=== PATIENT | male | born 1975 | race Caucasian/White ===

== ENCOUNTER 2017-03-07 15:06 | Emergency (ER) | payer BC ==
[2017-03-07 15:48] LABS: BASOPHIL# 0.2 X 10^3uL (0.0-0.1); BASOPHILS 1.1 % (0.0-2.0); EOSINOPHILS 2.7 % (0.0-6.0); EOSINOPHILS# 0.4 X 10^3uL (0.0-0.4); HEMATOCRIT 53.6 % (42.0-54.0); HEMOGLOBIN 18.4 g/dL (14.0-18.0); LYMPHOCYTES# 1.9 X 10^3uL (0.8-3.8); MEAN CELL VOLUME 88.4 fL (80.0-100.0); MEAN CORPUS. HGB CONCENTRATION 34.4 g/dL (32.0-36.0); MEAN CORPUSCULAR HEMOGLOBIN 30.4 pg (29.0-35.0); MEAN PLATELET VOLUME 8.8 fL (7.4-10.4); MONOCYTES 4.4 % (2.0-10.0); MONOCYTES# 0.6 X 10^3uL (0.2-1.0); NEUTROPHILS 78.8 % (54.0-75.0); NEUTROPHILS# 11.4 X 10^3uL (2.6-6.7); PLATELET COUNT 234 X 10^3uL (130-440); RED BLOOD COUNT 6.06 X 10^6uL (4.20-6.10); RED CELL DISTRIBUTION WIDTH 14.3 % (11.5-14.5); WHITE BLOOD COUNT 14.5 X 10^3uL (3.9-10.7)
[2017-03-07 15:55] LABS: BLOOD UREA NITROGEN 31 mg/dL (9-20); CALCIUM 9.9 mg/dL (8.4-10.2); CHLORIDE 98 mmol/L (98-107); EST GLOMERULAR FILTRATION RATE > 60 mL/min; GLUCOSE 160 mg/dL (70-100); MAGNESIUM 1.8 mg/dL (1.6-2.3); POTASSIUM 3.6 mmol/L (3.5-5.1); SODIUM 143 mmol/L (137-145)
--- NOTE | 2017-03-07 16:07 | RADIOLOGY REPORT ---
HISTORY: Cough. COMPARISON: None. FINDINGS: 1 view of the chest obtained. Image quality is degraded by motion artifact. There is suboptimal technique. The heart is enlarged. Mediastinum is not widened for technique. The trachea is midline. Pulmonary va scularity is plethoric. Lungs are hypoventilated with bibasilar volume loss. There is linear opacification both bases suggest amber of atelectasis or scarring. No confluent infiltrate. No pneumothorax or pleural effusion. There a re ovoid densities project over the right hilum which raise a question of right hilar adenopathy. IMPRESSION: 1. Suboptimal technique. 2. Multiple rounded and ovoid densities project over the right hilum suspicious for hilar adenopathy, alternatively these could represent pulmonary vessels on end, but are asymmetric compared to the lef t.. 3. Pulmonary vascular congestion. 4. Lungs are hypoventilated with bibasilar volume loss and linear atelectasis. 5. No pneumothorax or pleural effusion. Recommendation: If the patient's condition permits recommend PA and lateral chest film or CT of the c hest with contrast. Final Electronic Signature: This report was electronically signed by Mohsen Espinoza MD on 03/07/2017 4:0 5 PM. [facility] /
[2017-03-07] MEDS ORDERED: FUROSEMIDE 40 MG/4 ML VIAL ONE (16:38)
--- NOTE | 2017-03-07 16:49 | ER PHYSICIAN DOCUMENTATION ---
Physician Documentation [facility] Name:Iván Paiz Age:41 yrs Sex:Male :1975 Arrival Date:03/07/2017 Time:15:06 BedTrauma-C Private MD: Favian Blanchard Disposition: 03/07 16:21 Critical Care: not applicable. Chart complete. tl1 Disposition: 03/07/17 15:58 Transfer ordered to [facility]. Diagnosis is Acute Pulmonary Edema. - Reason for transfer: Higher level of care. - Accepting physician is Jeremy Collins. - Condition is Serious. - Problem is new. - Symptoms have improved. COBRA Form completed? Yes Transfer - Mode of Transportation Ambulance HPI: 15:23 This 41 yrs old Male presents to ER via Private Vehicle with complaints of tl1 Shortness Of Breath, Chest Tightness. 16:11 He arrived here 2 days ago (drove) from [place] and was immediately dyspneic. This is tl1 much worse today with a diffuse chest pressure. Denies F/C/S. No cough. Bilateral LE edema is worse than usual. Denies prior h/o CAD, or CHF. No prior h/o DVT/PE. No hemoptysis or pleuritic chest pain. Historical: - Allergies: No known drug Allergies; - Home Meds: 1. Atenolol Oral 2. Lotrel Oral 3. HCTZ 4. aspirin 81 mg oral tab 1 tab once daily - PMHx: Hypertension; OBESE; - PSHx: None; - Tetanus: < 10 years. - Ebola Screening: : Patient denies travel to an Ebola-affected area in the 21 days before illness onset. No symptoms or risks identified at this time. . - Immunization history: Pneumococcal vaccine status is unknown, Flu Vaccine >1 year Flu Vaccine >1 year. - Social history: Smoking status: Patient states was never smoker of tobacco. ROS: 16:14 Cardiovascular: Positive for edema, orthopnea, paroxysmal nocturnal dyspnea, Negative tl1 for chest pain, palpitations. 16:14 Respiratory: Positive for dyspnea on exertion, orthopnea, shortness of breath, Negative for cough, hemoptysis, sputum production, wheezing. 16:14 Abdomen/GI: Negative for abdominal pain, nausea, vomiting, diarrhea. 16:14 All other systems are negative. Exam: 16:15 Constitutional: The patient appears alert, awake, well developed, well hydrated, well tl1 groomed, well nourished, anxious, obese, in obvious distress, moderately distressed, restless, uncomfortable. 16:15 Head/face: Exam is negative for acute changes. 16:15 Neck: ROM/movement: is normal, is supple. 16:15 Cardiovascular: Rate: normal, Rhythm: regular, Heart sounds: normal, Edema: 4+ edema to level of left lower thigh and right lower thigh. 16:15 Respiratory: moderate respiratory distress is noted, Respirations: labored breathing, that is mild, Breath sounds: decreased breath sounds, that are moderate, are heard in the left posterior upper lobe, right posterior upper lobe, left posterior lower lobe, right posterior middle lobe and right posterior lower lobe. 16:15 Abdomen/GI: Inspection: abdomen appears normal, Bowel sounds: diminished, Palpation: abdomen is soft and non-tender. 16:15 Musculoskeletal/extremity: Exam is negative for acute changes. 16:15 Skin: Exam negative for acute changes. 16:15 Neuro: Exam negative for acute changes. Vital Signs: 15:11 BP 120 / 97; Pulse 104; Resp 24; Temp 98; Pulse Ox 50% on R/A; Weight 199.58 kg; Height lc 6 ft. (182.88 cm); Pain 2/10; 15:15 Resp 22; Pulse Ox 99% on 15% Non-rebreather mask; lc 15:51 BP 161 / 83; Pulse 38; Resp 18; Pulse Ox 95% on 10% Non-rebreather mask; Pain 0/10; lc 16:05 BP 153 / 88; Pulse 87; Resp 22; Pulse Ox 96% on 12% Non-rebreather mask; Pain 0/10; lc 16:20 BP 159 / 92; Pulse 76; Resp 20; Pulse Ox 95% on 10% Non-rebreather mask; Pain 0/10; lc 16:40 Pulse Ox 95% on 10% Non-rebreather mask; Pain 0/10; lc 15:11 Body Mass Index 59.67 (199.58 kg, 182.88 cm) MDM: 15:23 Patient medically screened. tl1 15:36 ECG:. tl1 15:55 EKG attached sj 16:00 ED course: Robeline much better after supplemental O2. Discussed with Dr Bagley who tl1 accepted the patient in transfer for treatment of HAPE.. 16:19 Differential diagnosis: Anemia CHF exacerbation, Myocardial Infarction pulmonary edema, tl1 Pulmonary Embolism HAPE. Antibiotic administration: Not indicated. The patient's pulmonary embolism risk score was calculated as follows: No Risks (0 Pts). Data reviewed: vital signs, nurses notes, diagnostic data from outside facility, lab test result(s), EKG, radiologic studies, and as a result, I will *Transfer Patient. 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 Test interpretation: by ED physician or midlevel provider: plain radiologic studies, ECG. Counseling: I had a detailed discussion with the patient and/or guardian regarding: the historical points, exam findings, and any diagnostic results supporting the discharge/admit diagnosis, lab results, radiology results, the need to transfer to another facility. Response to treatment: the patient's symptoms have markedly improved after treatment, and as a result, I will admit patient. 03/07 15:49 Order name: CBC AUTO DIF, MDIF/RMOR IF IND; Complete Time: 16:11 EDFL 03/07 16:08 Order name: DDIMER; Complete Time: 16:11 EDFL 03/07 16:09 Interpretation: Normal: DDIMER 235. [facility] 03/07 16:08 Order name: BASIC METABOLIC PANEL; Complete Time: 16:11 EDMS 03/07 16:09 Interpretation: SODIUM 143; POTASSIUM 3.6; CHLORIDE 98; CARBON DIOXIDE 34; GLUCOSE 160; tl1 BLOOD UREA NITROGEN 31; CREATININE 1.2; EST GLOMERULAR FILTRATION RATE > 60; CALCIUM 9.9. 03/07 16:08 Order name: MAGNESIUM; Complete Time: 16:11 EDMS 03/07 16:09 Interpretation: Normal: MAGNESIUM 1.8. [facility] 03/07 16:08 Order name: BNP,NT-PRO; Complete Time: 16:11 EDFL 03/07 16:09 Interpretation: Abnormal: BNP,NT-PRO 1000. [facility] 03/07 16:08 Order name: TROPONIN I; Complete Time: 16:11 EDMS 03/07 16:09 Interpretation: TROPONIN I 0.020; slight elevation (ULN=0.034). [facility] 03/07 16:09 Order name: CHEST; SINGLE VIEW [id number]; Complete Time: 16:11 EDFL 03/07 16:11 Interpretation: See radiologist report. Pulmonary congestion with low lung volumes, and tl1 probable right hilar lymphadenopathy. 03/07 15:35 Order name: EKG - 12 Lead; Complete Time: 15:49 tl1 03/07 15:49 Order name: Oxygen; Complete Time: 15:50 03/07 15:49 Order name: Oxygen Sats; Complete Time: 15:50 03/07 15:49 Order name: Cardiac Monitoring - Continuous; Complete Time: 16:07 EC:12 Rate is 89 beats/min. Rhythm is regular, Normal Sinus Rhythm. QRS Oral is Normal. IN tl1 interval is normal at 183 msec. QRS interval is normal at 101 msec. QT interval is normal at 449 msec. Q waves are Present in lead aVF. T waves are Normal. No ST changes noted. 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 Interpreted by me. Reviewed by me. Dispensed Medications: 16:25 Drug: Lasix 40 mg; Route: IVP; Infused Over: 5 mins; Site: left forearm; 16:40 Follow up: Response: Medication administered at discharge. Point of Care Testing: Urine Dip: 16:25 pH: 6.0; ; Specific [place]: 1.025; Ketones: Negative; Glucose: Negative; Protein: arc Positive (+++); Leukocytes: Negative; Nitrite: Negative ; Blood: Large (+++); Bilirubin: Negative ; Urobilinogen: Normal Signatures: Nathalie Pearson, ANNA CASTILLO Favian Washburn MD MD tl1 Chantelle Perez
--- NOTE | 2017-03-07 16:49 | ER NURSING DOCUMENTATION ---
Nurse's Notes [facility] Name:Iván Paiz Age:41 yrs Sex:Male :1975 Arrival Date:03/07/2017 Time:15:06 BedTrauma-C Private MD: Diagnosis:Acute Pulmonary Edema Presentation: 03/07 15:16 Acuity: YAYA 2 lp 15:18 Presenting complaint: Patient states: ARRIVED 3 DAYS AGO. SINCE C/O SOB WITH ACTIVITY. lc TODAY 1 HR AGO STARTED HAVING INTERMITTENT CHEST PRESSURE, NO N/V. Transition of care: patient was not received from another setting of care. Notified ED Physician of patient's arrival and CC Dr. Washburn notified. 15:18 Method Of Arrival: Private Vehicle lc Triage Assessment: 15:22 General: Appears distressed, uncomfortable, Behavior is anxious, cooperative, restless. lc 15:40 Pain: Complains of pain in xyphoid area and mid-sternal area Pain does not radiate. lc Pain At worst was 2 out of 10 on a pain scale. Quality of pain is described as burning, dull, Pain began 1 hour ago. Neuro: Level of Consciousness is awake, alert, Oriented to person, place, time, event. Cardiovascular: Capillary refill < 3 seconds Rhythm is sinus rhythm. Respiratory: Airway is patent Respiratory effort is labored, Respiratory pattern is tachypnea Breath sounds with crackles bilaterally. Breath sounds are diminished Reports shortness of breath air hunger since 3 DAYS Onset: The symptoms/episode began/occurred gradually, the patient has severe shortness of breath. GI: Abdomen is OBESE. Derm: Skin is pale. Historical: - Allergies: No known drug Allergies; - Home Meds: 1. Atenolol Oral 2. Lotrel Oral 3. HCTZ 4. aspirin 81 mg oral tab 1 tab once daily - PMHx: Hypertension; OBESE; - PSHx: None; - Tetanus: < 10 years. - Ebola Screening: : Patient denies travel to an Ebola-affected area in the 21 days before illness onset. No symptoms or risks identified at this time. . - Immunization history: Pneumococcal vaccine status is unknown, Flu Vaccine >1 year Flu Vaccine >1 year. - Social history: Smoking status: Patient states was never smoker of tobacco. Screenin:45 Infectious Disease Risk None. Abuse screen: Denies threats or abuse. Denies injuries lc from another. Nutritional screening: No deficits noted. Assessment: 15:45 See Triage Assessment done by same RN. lc 15:52 Reassessment: Patient states feeling better. Patient states symptoms have improved. Patient appears in no apparent distress at this time. FEELS MUCH BETTER AFTER 02, CHEST PRESSURE GONE. TRANSFER ARRANGED. FATHER AT BEDSIDE. MONITOR IN NSR.. 16:08 Reassessment: Patient denies pain at this time. Patient appears in no apparent distress at this time. READY FOR TRANSFER. MAP TO FAMILY.. 16:39 Reassessment: FINALLY RECEIVED BED ASSIGNMENT, PATIENT TRANSFERRED, VOIDED AT BEDSIDE. . Vital Signs: 15:11 BP 120 / 97; Pulse 104; Resp 24; Temp 98; Pulse Ox 50% on R/A; Weight 199.58 kg; Height lc 6 ft. (182.88 cm); Pain 2/10; 15:15 Resp 22; Pulse Ox 99% on 15% Non-rebreather mask; lc 15:51 BP 161 / 83; Pulse 38; Resp 18; Pulse Ox 95% on 10% Non-rebreather mask; Pain 0/10; lc 16:05 BP 153 / 88; Pulse 87; Resp 22; Pulse Ox 96% on 12% Non-rebreather mask; Pain 0/10; lc 16:20 BP 159 / 92; Pulse 76; Resp 20; Pulse Ox 95% on 10% Non-rebreather mask; Pain 0/10; lc 16:40 Pulse Ox 95% on 10% Non-rebreather mask; Pain 0/10; lc 15:11 Body Mass Index 59.67 (199.58 kg, 182.88 cm) ED Course: 15:07 Patient arrived in ED. jt 15:12 Labs drawn. (by ED staff). Sent per order to lab. EKG done. (by ED staff). Reviewed by frida Washburn MD. 15:16 Triage completed. lp 15:18 Nathalie Pearson, ANNA is Primary Nurse. lc 15:23 Favian Washburn MD is Attending Physician. tl1 15:25 Missed attempts: 20 gauge X 2 in right hand, in left hand. arc 15:45 Missed attempts: 20 gauge X 2 in right hand, in right wrist, ABLE TO DRAW LABS AND lc SENT. Oxygen Oxygen administration via face mask @ 15L/min. 15:45 Valuables Remains with patient Patient has correct armband on for positive lc identification. Placed in gown. Bed in low position. Call light in reach. Side rails up X2. Adult w/ patient. athletic monitor on. Pulse ox on. NIBP on. Head of bed elevated. 15:47 Inserted peripheral IV: 22 gauge in left forearm saline lock:. 15:55 EKG attached Administered Medications: 16:25 Drug: Lasix 40 mg; Route: IVP; Infused Over: 5 mins; Site: left forearm; 16:40 Follow up: Response: Medication administered at discharge. Point of Care Testing: Urine Dip: 16:25 pH: 6.0; ; Specific [place]: 1.025; Ketones: Negative; Glucose: Negative; Protein: arc Positive (+++); Leukocytes: Negative; Nitrite: Negative ; Blood: Large (+++); Bilirubin: Negative ; Urobilinogen: Normal Outcome: 15:58 ER care complete, transfer ordered by . tl1 16:40 [facility]: March 07, 2017 at 16:00 Patient's face sheet was faxed to accepting facility. Face Sheet included patient's name, address, age, gender, contact information and insurance information. Patient will be transported by: [facility] ground. Nurse and Physician Charting and Notes were sent to Accepting Facility. All tests and/or procedures with results, if applicable, were sent to accepting facility. 16:40 Condition: stable 16:40 Discharge Assessment: Patient awake, alert and oriented x 3. No cognitive and/or functional deficits noted. Patient verbalized understanding of disposition instructions. 16:40 Instructed on need for transfer 16:48 Transferred: Report called to: CARLOS CASTILLO AT [facility] 16:49 Patient left the ED. Signatures: Nathalie Pearson RN RN lc Pavlish, Lena, RN RN lp Abbott, Laura lea Leigh, Tom, MD MD tl1 Zakiya Rawls Reg Reg arc Tennant, Joanne jt Janzen, Sarah sj
== END 2017-03-07 16:49 | disposition short-term general hospital (02) ==
LOC: ER 15:06
DX: J81.0 Acute pulmonary edema (principal); R06.01 Orthopnea; R06.00 Dyspnea, unspecified; R60.0 Localized edema; E66.9 Obesity, unspecified; I51.7 Cardiomegaly; I25.2 Old myocardial infarction; Z99.89 Dependence on other enabling machines and devices; Z74.3 Need for continuous supervision; I10 Essential (primary) hypertension; Z79.899 Other long term (current) drug therapy
CPT/HCPCS: 71010; 80048; 83735; 83880; 84484; 85025; 85379; 93005; 96374; 99285; A0425; A0427; J1940